=== PATIENT | female | born 1980 | race Caucasian/White ===

== ENCOUNTER 2018-07-19 19:38 | Emergency (ER) | payer OTHER ==
[~2018-07-19] VITALS: Ht 165.1 cm; Wt 58.5 kg
[2018-07-19 19:44] VITALS: TEMP 36.8; Ht 165.1 cm; Wt 58.5 kg
[2018-07-19] MEDS ORDERED: LIDOCAINE 1% BUFFERED INJ 20 ML VIAL INFIL STA (19:55)
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
[2018-07-19 20:33] VITALS: BP 140/78; PULSE 65; O2SAT 98
== END 2018-07-19 20:36 | disposition home or self-care (01) ==
LOC: C.EDB 19:40 → C.EDD 20:36
DX: S61.412A Laceration without foreign body of left hand, initial encounter (principal); W20.8XXA Other cause of strike by thrown, projected or falling object, initial encounter; Y93.89 Activity, other specified